=== PATIENT | female | born 1960 | race Caucasian/White ===

== ENCOUNTER → 2022-02-20 09:28 | Outpatient (CLI) | payer OTHER, SELFPAY ==
--- NOTE | ~2022-02-20 | DEXA_ITS ---
Bone Density Report Name: ADRIANA GONZALEZ Age: 62 Sex: Female Ethnicity: White Date of : 1960 Indication: postmenopausal; screening for osteoporosis; height loss; Referring Provider: IRAJ ALCOCER Study: Bone densitometry was performed. 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 These spine BMD and T score and Z score measurements are not reflective of the patient's true general bone mineral density. Bone Density: Region BMD T-score Z-score Classification AP Spine (L1-L4) 1.233 1.7 3.3 Normal Femoral Neck (Left) 0.829 -0.2 1.2 Normal Total Hip (Left) 0.962 0.2 1.3 Normal Femoral Neck (Right) 0.828 -0.2 1.2 Normal Total Hip (Right) 0.979 0.3 1.4 Normal Total Hip Mean 0.971 0.3 1.4 Normal World Health Organization criteria for BMD impression classify patients as: Normal (T-score at or above -1.0), Osteopenia (T-score between -1.0 and -2.5), or Osteoporosis (T-score at or below -2.5). 10-year Fracture Risk: FRAX not reported because: All T-scores for Spine Total, Hip Total, Femoral Neck at or above -1.0 Previous Exams: Region Exam Age BMD T-score BMD Change BMD Change Date g/cm2 vs Baseline vs Previous AP Spine(L1-L4) 02/20/2022 62 1.233 1.7 0.018 0.018 12/20/2015 55 1.215 1.5 Total Hip(Left) 02/20/2022 62 0.962 0.2 -0.008 -0.008 12/20/2015 55 0.970 0.2 Total Hip(Right) 02/20/2022 62 0.979 0.3 -0.080* -0.080* 12/20/2015 55 1.059 1.0 *Denotes significance at 95% confidence level, LSC for AP Spine = 0.022 g/cm2, LSC for Total Hip = 0.027 g/cm2 Clinical Information Provided by Patient: Patient maximum height was 69 Menopause Age: 54 Onset of menses at age 14 Number of children 2 Impression: The patient has normal bone mass. The BMD for the Total Hip(Right) decreased, changing by -0.080 since the last DXA exam. 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 These spine BMD and T score and Z score measurements are not reflective of the patient's true general bone mineral density. Discussion: BONE DENSITY IS ABOVE THE MINIMUM DESIRABLE LEVEL AT ALL SKELETAL SITES TESTED. This patient?s bone mineral density is above the mi
== END ==
PROVIDERS: PCP Internal Medicine; Visit Provider Obstetrics & Gynecology Gynecology
DX: Z78.0 Asymptomatic menopausal state (principal); Z13.820 Encounter for screening for osteoporosis
CPT/HCPCS: 77080

== ENCOUNTER 2023-02-05 00:48 | Day surgery (SDC) | payer OTHER, SELFPAY ==
[2023-01-23 13:32] VITALS: BMI 35.2
--- NOTE | 2023-02-04 19:27 | PM.HPGS ---
History of Present Illness History of Present Illness Consent: Risks, benefits, and alternatives have been discussed and questions answered. Patient agrees to proceed with procedure. Chief complaint: neoplasm screening Narrative: Liset Matute is a 63 year old female referred for colon cancer screening . She has had polyps removed in the past. Her last colonoscopy was 5 years ago. Review of Systems Review of Systems: All systems reviewed & are unremarkable except as noted in HPI and below PMFSH Social History Social History Smoking status: Never smoker Alcohol intake: current Alcohol use details: rare Substance use: never Substance use type: does not use Living arrangements: with family Spiritual care concerns: No Meds Home Medications and Allergies Home Medications Medication Instructions Recorded Confirmed Type diclofenac sodium 75 mg 75 mg PO BID 01/23/23 01/23/23 History tablet,delayed release gabapentin 300 mg capsule 300 mg PO TID 01/23/23 01/23/23 History lisinopril 20 mg tablet 20 mg PO DAILY 01/23/23 01/23/23 History rosuvastatin 10 mg tablet 10 mg PO DAILY 01/23/23 01/23/23 History Allergies Allergy/AdvReac Type Severity Reaction Status Date / Time No Known Allergies Allergy Verified 02/05/23 08:25 Exam Const: General: alert Orientation/consciousness: patient oriented x3 Resp: Auscultation: clear to auscultation bilaterally Cardio: Rhythm: regular rhythm GI: GI Palp: Yes Soft to palpation and No Tenderness to palpation present (GI) Neuro: General: patient oriented x3 Assessment and Plan Assessment and plan (1) Colon cancer screening: Code(s): Z12.11 - Encounter for screening for malignant neoplasm of colon Status: Acute Assessment and Plan: Colonoscopy with possible biopsy or polypectomy or cautery or injection of substances.
[2023-02-05 08:26] VITALS: BP 142/110; PULSE 84; RESP 20; TEMP 36.2; O2SAT 97
[2023-02-05] MEDS: LACTATED RINGERS 1,000 ML 150 ML IV CONT (08:34)
--- NOTE | 2023-02-05 09:14 | P.PNAN_ITS ---
Anes - Initial Pre Proc Eval Procedure: Operation Date: 02/05/23 09:30 Proposed Procedures p Screening Colonoscopy - Andrae Yepez MD Date/Time: 02/05/23 09:14 Surgeon: Andrae Yepez MD Pre Op Diagnosis: neoplasm screening Patient Data Age: 63 Gender: F Height: 1.73 m Weight: 103.9 kg Last Vital Signs Temp 97.1 F L 02/05/23 08:26 Pulse 84 02/05/23 08:26 Resp 20 02/05/23 08:26 BP 142/110 H 02/05/23 08:26 Pulse Ox 97 02/05/23 08:26 O2 Del Method Room Air 02/05/23 08:26 Allergies Allergy/AdvReac Type Severity Reaction Status Date / Time No Known Allergies Allergy Verified 02/05/23 08:25 Home Medications Medication Instructions Recorded Confirmed Type diclofenac sodium 75 mg 75 mg PO BID 01/23/23 01/23/23 History tablet,delayed release gabapentin 300 mg capsule 300 mg PO TID 01/23/23 01/23/23 History lisinopril 20 mg tablet 20 mg PO DAILY 01/23/23 01/23/23 History rosuvastatin 10 mg tablet 10 mg PO DAILY 01/23/23 01/23/23 History Patient hx anesthesia problems: none Family hx anesthesia problems: none Results Review: All pre-operative results and documents have been reviewed as part of the pre- operative evaluation. [facility] Social History Social History Smoking status: Never smoker Alcohol intake: current Alcohol use details: rare Substance use: never Substance use type: does not use Living arrangements: with family Spiritual care concerns: No Anes - Eval Final PreProcedure Day of Procedure 02/05/23 09:14 Patient weight: obese Heart: regular rate and rhythm Lungs: clear to auscultation Airway: Mallampati scale class II Neurological: alert and oriented Last oral intake: >/= 8 hours ASA classification: II Emergent: no Anesthetic plan: proceed Anesthesia type and monitoring: general GIVS and standard monitoring Results Review: All pre-operative results and documents have been reviewed as part of the pre- operative evaluation. Informed Consent: The patient's anesthetic plan and its attendant risks and benefits were discussed with the patient/family/POA. Questions were solicited and answers provided to the satisfaction of the patient/family/POA.
[2023-02-05 09:30] VITALS: BP 103/77; PULSE 74; RESP 17; O2SAT 96
[2023-02-05 09:40] VITALS: BP 120/68; PULSE 83; RESP 18; O2SAT 96
[2023-02-05 09:50] VITALS: BP 137/79; PULSE 70; RESP 20; O2SAT 95
== END 2023-02-05 10:00 | disposition home or self-care (01) ==
PROVIDERS: PCP Internal Medicine; Visit Provider Internal Medicine Gastroenterology
PROC: 0DJD8ZZ Inspection of Lower Intestinal Tract, Via Natural or Artificial Opening Endoscopic (ICD-10-PCS; CPT 45378; principal; 2023-02-05 09:30)
DX: Z12.11 Encounter for screening for malignant neoplasm of colon (principal); Z86.010 Personal history of colon polyps; E66.9 Obesity, unspecified; Z68.34 Body mass index [BMI] 34.0-34.9, adult
CPT/HCPCS: 45378; J2704; J7120

== ENCOUNTER 2025-07-24 13:01 | Outpatient (CLI) | payer MEDICARE, SELFPAY ==
--- NOTE | ~2025-07-24 | DEXA_ITS ---
Bone Density Report Name: ADRIANA GONZALEZ Age: 65 Sex: Female Ethnicity: White Date of : 1960 Indication: monitoring treatment; height loss; Referring Provider: IRAJ ALCOCER Study: Bone densitometry was performed. Exam Date: July 24, 2025 Accession number: [id number] Bone Density: Region BMD T-score Z-score Classification AP Spine(L1, L2) 1.060 0.7 2.5 Normal Femoral Neck (Left) 0.770 -0.7 0.9 Normal Total Hip (Left) 0.908 -0.3 1.0 Normal Femoral Neck (Right) 0.823 -0.2 1.4 Normal Total Hip (Right) 0.976 0.3 1.6 Normal Total Hip Mean 0.942 0.0 1.3 Normal World Health Organization criteria for BMD impression classify patients as: Normal (T-score at or above -1.0), Osteopenia (T-score between -1.0 and -2.5), or Osteoporosis (T-score at or below -2.5). 10-year Fracture Risk: FRAX not reported because: All T-scores for Spine Total, Hip Total, Femoral Neck at or above -1.0 Treated for osteoporosis Previous Exams: -- Region Exam Age BMD T-score BMD Change BMD Change Date g/cm2 vs Baseline vs Previous -- AP Spine (L1-L2) 07/24/2025 65 1.060 0.7 -6.3%* 2.1% 02/20/2022 62 1.038 0.5 -8.3%* -8.3%* 12/20/2015 55 1.131 1.4 Total Hip(Left) 07/24/2025 65 0.908 -0.3 -6.5%# -5.7%# 02/20/2022 62 0.962 0.2 -0.8% -0.8% 12/20/2015 55 0.970 0.2 Total Hip(Right) 07/24/2025 65 0.976 0.3 -7.8%# -0.3%# 02/20/2022 62 0.979 0.3 -7.6%* -7.6%* 12/20/2015 55 1.059 1.0 -- *Denotes significance at 95% confidence level, LSC for AP Spine = 0.022 g/cm2, LSC for Total Hip = 0.027 g/cm2 Rate of change results reflect vertebral levels common to all scans # Denotes dissimilar scan types or analysis methods Clinical Information Provided by Patient: Is being treated for osteoporosis Has used the following medications: Vitamin D, Diclafonec Patient maximum height was 69 Menopause Age: 54 No regular weight bearing exercise Onset of menses at age 14 Number of children 2 Impression: The patient has normal bone mass. Unable to evaluate interval change due to the use of different scan modes. Discussion: PATIENT UNDER TREATMENT WITH NO SIGNIFICANT BMD LOSS SINCE LAST EXAM. In an untreated patient, BMD typically declines with age. A lack of decline or gain is usually a sign that treatment is efficacious and fracture risk is reduced. It is important to ask patients whether they are taking their medications and to encourage continued and appropriate compliance with their osteoporosis therapies to reduce fracture risk. It is also important to review their risk factors and encourage appropriate calcium and vitamin D intakes, exercise, fall prevention and other lifestyle measures. Follow-Up: Consider a repeat BMD and Vertebral Fracture Assessment (VFA) exam in 2 years or sooner if medically necessary, to reassess this patient's status. Reported by: TRISTA on 07/24/2025 1:37:00 PM. Reviewed, dictated and finalized at location A.
== END 2025-07-24 13:02 | disposition home or self-care (01) ==
LOC: MICIMG 13:05
PROVIDERS: PCP Internal Medicine; Visit Provider Obstetrics & Gynecology Gynecology
DX: Z78.0 Asymptomatic menopausal state (principal)
CPT/HCPCS: 77080